=== PATIENT | female | born 2000 | race Caucasian/White ===

== ENCOUNTER 2025-05-23 18:56 | Emergency (ER) | payer OTHER, SELFPAY ==
--- NOTE | ~2025-05-23 | XR_ITS ---
XR hand LT min 3V 05/23/2025 20:11 INDICATION: Left hand pain after dog bite PROCEDURE: 3 views left hand COMPARISON: No prior studies for comparison. FINDINGS: Fracture, dislocation or subluxation is not identified. The soft tissues appear within normal limits. No foreign bodies are identified. IMPRESSION: 1: NO ACUTE BONE OR JOINT ABNORMALITY IDENTIFIED. Reviewed, dictated and finalized at location [facility]
--- OUTSIDE RECORDS SUMMARY | 2025-05-23 18:58 | XMS_ITS | Data Portability ---
Author Organization [facility] [place] Address [address] [place] [address] Care Team Providers Care Vocational Coordinator Name Role Phone INOCENCIO DAMON Primary Care Provider Assessment Encounter Date Assessment Date Assessment LastModified by Organization Details LastModified Time 03/02/2022 03/02/2022 Annual gynecological exam performed. Patient will come back in a year unless there are new symptoms. Not available 03/02/2022 12:47:50 09/10/2023 09/10/2023 Annual gynecological exam performed. Patient will come back in a year unless there are new symptoms. [email or web address] Not available 09/10/2023 14:21:18 09/10/2024 09/10/2024 Annual gynecological exam performed. Patient will come back in a year unless there are new symptoms. [email or web address] Not available 09/10/2024 10:58:17 Plan of Treatment Reminders Order Date Submit Date Provider Last Modified By Organization Details Last Modified Time Details Appointments None recorded. Lab None recorded. Referral None recorded. Procedures None recorded. Surgeries None recorded. Imaging None recorded. Medication Orders 06/15 (28) 1 mg-20 mcg (21)/75 mg (7) tablet 2024 025 E[id number], [address], [place], [address], 11:30:19 Slynd 4 mg (28) tablet 2023 024 [email or web address] 6 [facility] #[id number], [address], [place], [address], 4 09:34:43 Slynd 4 mg (28) tablet 2023 024 [email or web address] 6 [facility] #[id number], [address], [place], [address], 4 09:34:43 Blisovi Fe 1/20 (28) 1 mg-20 mcg (21)/75 mg (7) tablet 2021 022 [place] [address] [facility][id number], [address], [place], [place], [id number], 4 14:25:15 Aurovela Fe 1-20 (28) 1 mg-20 mcg (21)/75 mg (7) tablet 2020 021 [id number], [address], [place], [place], [id number], 4 14:25:15 Patient TargetsNo targets recorded. Patient InstructionsNo instructions recorded. Reason for Referral None Reported. Results Created Date Observation Date Name Description Value Unit Range Abnormal Flag Note LastModifiedBy Organization Detail LastModifiedTime 09/10/19 24 09/10/2023 IMAGE GUIDE D PAP, REFLE X HPV IF ASCUS ONLY image guided Pap, reflex HPV ASCUS only SEE RESULT S BELOW CASE REPOR T: Cytol ogy Gynec ologi lashell Repor t Case: [id number] Autho lencho riggs Provi al: Ryan Gamboa Colle cted: 09/09 1507 STEREOPTICIAN Order ing Locat ion: [place] [facility] Recei van: 09/10 0902 First Scree n: Diamond Rodriguez ay, CT Speci men: Scree heriberto Pap - Image d, Cervi x STATE MENT OF ADEQU ACY: Satis facto ry for evalu ation Trans forma tion zone compo nent prese nt FINAL DIAGN OSIS: Negat leila for Intra epith elial Lesio n or Echo gonzalez (NIL) . Shift in debbie sugge stive of bacte rial vagin osis. Elect nasir fregoso meliton d by Diamond Rodriguez, CT on 2023 at 10:56 AM ----- ----- ----- ----- ----- ----- ----- ----- ----- ----- ----- ----- ----- ----- ----- ----- ----- ---- COMME NT: This speci men was revie wed by a Cytot echno logis t and/o r Patho logis t (as indic ated in this repor t) after evalu ation using the Thinp rep Imagi ng Syste m. CLINI LASHELL INFOR MATIO N: Menst rual Statu s: LMP (if appli cable ): Clini lashell Histo ry/Pr eviou s Pap: Type of Neopl arnulfo (if appli cable ): Signi fican t Clini lashell Findi ngs: Other Histo ry: Hormo radha (if appli cable ): PAP EDUCA SANTOS L NOTE: The Pap Test is a scree heriberto test with an inher ent false negat leila rate. Liqui d-bas ed sampl ing may decre ase, but will not elimi rommel, false negat leila resul ts. A negat leila resul t does not precl ude the prese nce and/o r devel opmen t of disea se, since the prese nce of abnor mal cells in the sampl e depen ds on the locat ion of the lesio n and sampl ing techn ique. Justine nued regul ar scree heriberto is the best metho d of cance r preve ntion . If repor angy cytol ogic findi ng do not corre late with physi lashell and/o r histo rical findi ngs, furth er inves tigat ion is recom yoselyn d, as clini orly contreras nted. Not Available [facility] (Lab) [address], [place], [address], 09/16/2023 12:01:38 09/10/19 24 09/10/2023 TRICH OMONA S VAGIN ANA (RRNA ) trichomonas vaginalis ribosomal RNA (rrna) Negati ve negati ve Not Available [facility] (Lab) [address], [place], [address], 09/16/2023 12:01:39 09/10/19 24 09/10/2023 CT/GC (ARIK) , THINP REP VIAL chlamydia trachomatis, PCR Negati ve negati ve Not Available [facility] (Lab) [address], [place], [address], 09/16/2023 12:01:40 09/10/19 24 09/10/2023 CT/GC (ARIK) , THINP REP VIAL neisseria gonorrhoeae, PCR Negati ve negati ve Not Available [facility] (Lab) [address], [place], [address], 09/16/2023 12:01:40 Result Notes None recorded. Problems Name Problem SNOMED Code Status Onset Date Resolution Date Notes Provider Name and Address Organization Details Recorded Time Procedure by method Completed 201802/15/2021 Encounter for other general counselin g and advice on contracep tion;Donnell rded Elsewhere : No Locati on: [facility] So urce: EHR Chron ic: N Practic e ID: [id number] Bill able Time: 01:30:00 PM Stephany cote [facility] 11:25:[address] Concept Completed 201802/15/2021 Encntr for routine child health exam w/o abnormal findings; Recorded Elsewhere : No Locati on: [facility] So urce: EHR Chron ic: N Practic e ID: [id number] Bill able Time: 01:30:00 PM Stephany cote [facility] 09/22/202 1 11:25:08 Problem Notes None recorded. Procedures Surgical History Date Name Laterality Status Provider Name and Address Organization Details Recorded Time 4 Date of Last Pap Smear completed [facility] 09/10/2023 14:21:33 3 extraction of wisdom tooth completed [facility] 09/10/2023 14:26:01 Imaging Results None recorded. Procedure Notes None recorded. Medical Equipment None Reported. Allergies No known drug allergies Medications Name Sig Start Date Stop Date Status Note LastModified by Organization Details LastModified Time cyclobenz aprine 10 mg tablet TAKE 1 TABLET BY MOUTH EVERY 8 HOURS 03/02 completed Not Available Not Available Not Available ibuprofen 800 mg tablet TAKE 1 TABLET BY MOUTH EVERY 8 HOURS NEEDED FOR PAIN 09/09 completed Not Available Not Available Not Available hydrocodo ne 5 mg-acetam inophen 325 mg tablet TAKE 1 TO 2 TABLETS BY MOUTH EVERY 6 HOURS NEEDED FOR PAIN 09/09 completed Not Available Not Available Not Available metronida zole 0.75 % (37.5 mg/5 gram) vaginal gel INSERT 1 APPLICAT ORFUL VAGINALL Y EVERY DAY AT BEDTIME FOR 5 DAYS 11/25 completed Not Available Not Available Not Available ondansetr on HCl 4 mg tablet 12/20 completed Not Available Not Available Not Available pimecroli mus 1 % topical cream APPLY THIN LAYER TO AFFECTED AREA UNTIL RESOLVED , THEN 2 TO 3 TIMES PER WEEK FOR MAINTENA NCE active Not Available Not Available No t Available propranol ol 10 mg tablet TAKE 2 TABLETS BY MOUTH TWICE A DAY NEEDED FOR 30 DAYS 09/10 completed Not Available Not Available Not Available amoxicill in 875 mg tablet TAKE 1 TABLET BY MOUTH TWICE A DAY UNTIL FINISHED 09/09 completed Not Available Not Available Not Available oseltamiv ir 75 mg capsule 12/20 completed Not Available Not Available Not Available ibuprofen 600 mg tablet TAKE 1 TABLET BY MOUTH EVERY 8 HOURS WITH FOOD NEEDED 03/02 completed Not Available Not Available Not Available FE 06/15 (28) 1 mg-20 mcg (21)/75 mg (7) tablet TAKE 1 TABLET BY MOUTH EVERY DAY active Not Available Not Available No t Available sodium fluoride 1.1 % dental paste USE AT BEDTIME. BRUSH THOROUGH LY & SPIT OUT AFTER USE BUT DONT RINSE 09/10 completed Not Available Not Available Not Available Lo Loestrin Fe 1 mg-10 mcg (24)/10 mcg (2) tablet take 1 tablet by oral route every day 05/25 completed Prescrib ed Elsewher e: No Locat ion: Ramonita nunez [facility] M odify By: emily cantor DateTime : 05/22/20 01:30:00 PM Not Available Not Available Not Available Slynd 4 mg (28) tablet TAKE 1 TABLET BY MOUTH EVERY DAY WITH MEALS 01/06 completed Not Available Not Available Not Available Vitals Date Recorded Systolic And Diastolic Provider Name and Address Organization Details Last Updated DateTime 09/10/2023 118/72 mm[Hg] Radha Galarza, [facility]- [address], [place], [address], [facility] 09/10/2023 14:44:45 Date Recorded Body weight Provider Name an d Address Organization Details Last Updated DateTime 09/10/2023 28228.44 g Pamela Stahl [facility] 09/10/2023 14:24:49 Date Recorded Body height Body mass index (BMI) Body weight Systolic And Diastolic Provider Name and Address Organization Details Last Updated DateTime 09/10/2024 158.75 cm 25.8 kg/m2 86192.43 g 129/85 mm[Hg] Kanchan Woody [facility] 09/10/2024 11:03:04 Date Recorded Body height Body mass index (BMI) Body weight Systolic And Diastolic Provider Name and Address Organization Details Last Updated DateTime 11/26/2023 158.75 cm 24.7 kg/m2 85743.15 g 122/77 mm[Hg] Rose Marie Troncoso [facility] 11/26/2023 10:20:19 Date Recorded Body height Body mass index (BMI) [Percentile] Per age and sex Body mass index (BMI) Body weight Systolic And Diastolic Provider Name and Address Organization Details Last Updated DateTime 02/20/2021 157.48 cm 70 % 23.6 kg/m2 57914.4 2 g 116/74 mm[Hg] Stephany Zeke [facility] 09:28:08 Date Recorded Body height Body mass index (BMI) [Percentile] Per age and sex Body mass index (BMI) Body weight Systolic And Diastolic Provider Name and Address Organization Details Last Updated DateTime 03/02/2022 158.75 cm 74 % 24.3 kg/m2 62447.9 7 g 120/72 mm[Hg] Pamela Alcantar [facility] 12:48:24 Social History Question Answer Notes LastModified by Organizat ion Details LastModified Time Tobacco Smoking Status Never Smoker Jose Locke kera [facility] 03/02/2022 12:25:54 Do You Have An Advance Directive? No [email or web address] Information n ot available 02/20/2021 Are You Blind Or Do You Have Difficulty Seeing? No [email or web address] Information n ot available 02/20/2021 What Is Your Level Of Caffeine Consumption? Occasional [email or web address] Information not available 02/20/2021 How Much Tobacco Do You Chew? None [email or web address] Information not available 02/20/2021 In The 14 Days Before Symptom Onset, Have You Had Close Contact With A Laboratory-confirm ed COVID-19 While That Case Was Ill? No [email or web address] Information n ot available 02/20/2021 In The 14 Days Before Symptom Onset, Have You Had Close Contact With A Person Who Is Under Investigation For COVID-19 While That Person Was Ill? No [email or web address] Information not available 02/20/2021 Have You Been To An Area Known To Be High Risk For COVID-19? No Information not available 02/20/2021 Are You Deaf Or Do You Have Serious Difficulty Hearing? No [email or web address] Information not available 02/20/2021 What Type Of Diet Are You Following? REGULAR Information n ot available 02/20/2021 What Is The Highest Grade Or Level Of School You Have Completed Or The Highest Degree You Have Received? [id number] [email or web address] Information not available 02/20/2021 Are There Any Guns Present In Your Home? Yes Information not available 02/20/2021 Do You Use Protection During Sex? Always [email or web address] Information not available 02/20/2021 Do You Use Your Seat Belt Or Car Seat Routinely? Yes [email or web address] Information not available 02/20/2021 Do You Have Smoke And Carbon Monoxide Detectors In Your Home? Yes [email or web address] Information not available 02/20/2021 How Much Tobacco Do You Smoke? No Information not available 02/20/2021 Do You Use Sunscreen Routinely? Yes [email or web address] Information not available 02/20/2021 Have You Used IV Drugs? No [email or web address] Information not available 02/20/2021 Do You Have Difficulty Walking Or Climbing Stairs? No Information not available 03/02/2022 Sex: Unknown Functional Status Question Answer Note LastModified by Organizat ion Details LastModified Time Do you use any illicit or recreational drugs? No [email or web address] Information not available 02/20/2021 What is your level of alcohol consumption? None [email or web address] Information not available 02/20/2021 Are you able to walk independently without assistance or assistive devices? [email or web address] Information not available 02/20/2021 Are you able to care for yourself independently? Yes Information not available 03/02/2022 What is your occupation? Student Information not available 02/20/2021 Do you have difficulty dressing, bathing, grooming, or toileting? No Information not available 03/02/2022 What is your exercise level? Heavy [email or web address] Information not available 02/20/2021 Mental Status Question Answer Note LastModified by Organization D etails LastModified Time Do you feel stressed (tense, restless, nervous, or anxious, or unable to sleep at night)? [id number] [email or web address] Information not available 02/20/2021 Family History Relationship Description Onset Age of this Age Resolved Age Notes LastModified by Organization Details LastModified Time Mother Hypertensive disorder [email or web address] Not available 2019 09:46:12 Mother Hypercholest erolemia [email or web address] Not available 2019 09:46:32 Maternal Grandfather Hypertensive disorder [email or web address] Not available 2019 09:46:12 Maternal Grandfather Heart disease [email or web address] Not available 2019 09:46:37 Maternal Grandfather Diabetes mellitus [email or web address] Not available 2019 09:46:46 Maternal Grandfather Multiple myeloma Not available 2021 12:49:51 Father Hypercholest erolemia [email or web address] Not available 2019 09:46:32 Maternal Grandmother Hypercholest erolemia [email or web address] Not available 2019 09:46:32 Paternal Grandfather Carcinoma of prostate 61 [email or web address] Not available 2021 12:25:53 Paternal Grandmother Malignant neoplasm of skin 70 [email or web address] Not available 2021 12:25:53 Medical History Condition Response Allergies (Food, seasonal, environmental ) N Other N Drug/Latex Allergies/Reactions N Breast Cancer N Blood Transfusion N Lung Disease N Dermatologic Disorders N Defects or Inherited Disease N Breast Problem N Gestational Diabetes N Hematologic disorders N Anesthesia Complications N History of STI N Deep Vein Thrombosis N Polycystic ovary syndrome N Anxiety Disorder N Autoimmune disease N Arthritis N Polyps N Infertility N History of abnormal pap N Acid Reflux (GERD) N Cancer N Varicosities N Stroke N Neurologic/Epilepsy N Endometriosis N High Cholesterol N Headaches N Fibromyalgia N Kidney Disease N Heart Problems N Thyroid Problems N Kidney or Bladder Problems N GI Problems N Eating Disorder N Anemia N Art (IVF or FET) N Psychiatric Illness N Ovarian Cancer N Diabetes N Pulmonary (TB, Asthma) N Hepatitis/Liver Disease N No Past Medical History N Eczema N Urinary Tract Infection N Abuse/Domestic Violence N Asthma N Trauma/Violence N Depression/ depression N Heart Disease N Pre-Eclampsia N Hypertension N Osteoporosis N Thrombophilias N Gynecological History Statement/Question Response Flow Moderate Date of LMP 08/15/2024 N Was last menstrual period normal Y STIs/STDs N HPV Vaccine N Duration of Flow (days) 5 12 Current Control Method None Are cycles usually normal Y Frequency of Cycle (Q days) 26 Sexually Active? Y BCPs Menses Monthly Y Age of first menstrual cycle 13 Date of Last Pap Smear 09/10/2023 Sexual Problems? N LMP Definite N Obstetrics History GPAL:G 0 P 0 0 0 0 Past Encounters Encounter ID Performer Location Encounter Start Date Encounter Closed Date Diagnosis/Indication Diagnosis SNOMED-CT Code Diagnosis ICD10 Code Diagnosis IMO Codes Diagnosis Note [id number] [facility] [address] [address] 12/21/2019 09:47:39 12/21/2019 10:46:26 Gynecologic examination 81021906 Z01.419 Take Calcium with Vitamin D 1200mg daily if not receiving in daily diet. It is strongly advised to have an annual flu shot and up can obtain at most pharmacies . If you have not had a TDap shot in the last 10 years you should obtain one as well. Discussed with patient & provided with informatio n regarding Gardisil vaccine to prevent the 4 strains for HPV that cause cervical cancer. Encourage safe sexual practices, to use condoms and limit partners if not already in a monogamous relationsh ip. Do monthly self breast exams. BRCA testing is now available for patients with strong genetic history of female cancer. If interested contact the office. Engage in daily exercise of low impact aerobic exercise 45-60 minutes 4-5 times weekly. Avoid tobacco, illicit drugs, and alcohol. This lifestyle behavior pattern will lead to less health conditions and longer life span. If BMI greater than 25 weight watchers or dietary consult advised. Pap smear is not recommende d prior to the age of 21. If you have any concerns, pelvic, or vaginal problems we can discuss testing. Patient received above instructio ns, and questions have been answered. If you have any questions please call or respond to this email. Patient was made aware of the patient portal and may obtain a paper copy of today's plan if desired. [facility] ion care management [id number] Z30.9 RF sent 06/15. REcently received a generic of this brand & feels she can tell a difference as it has caused a little BTB/spotti ng and earlier period start since starting itdespite good compliance . Rx 06/15 LIZZIE sent [id number] Julee Cruz CNM [facility] [address] [address] 02/20/2021 09:20:05 02/20/2021 10:11:57 Gynecologic examination 78971035 Z01.419 Z11.3 Z11.8 Take Calcium with Vitamin D 1200mg daily if not receiving in daily diet. It is strongly advised to have an annual flu shot and up can obtain at most pharmacies . If you have not had a TDap shot in the last 10 years you should obtain one as well. Discussed with patient & provided with informatio n regarding Gardisil vaccine to prevent the 4 strains for HPV that cause cervical cancer. Encourage safe sexual practices, to use condoms and limit partners if not already in a monogamous relationsh ip. Do monthly self breast exams. BRCA testing is now available for patients with strong genetic history of female cancer. If interested contact the office. Engage in daily exercise of low impact aerobic exercise 45-60 minutes 4-5 times weekly. Avoid tobacco, illicit drugs, and alcohol. This lifestyle behavior pattern will lead to less health conditions and longer life span. If BMI greater than 25 weight watchers or dietary consult advised. Pap smear is not recommende d prior to the age of 21. If you have any concerns, pelvic, or vaginal problems we can discuss testing. Happy with ocp and would like to continue. Consent read and signed. Patient received above instructio ns, and questions have been answered. If you have any questions please call or respond to this email. Patient was made aware of the patient portal and may obtain a paper copy of today's plan if desired. [id number] Radha Galarza , [facility] [address],[place] [address] 03/02/2022 12:25:37 03/02/2022 13:15:24 Gynecologic examination [id number] Z01.419 Take Calcium with Vitamin D 1200mg daily if not receiving in daily diet. It is strongly advised to have an annual flu shot and up can obtain at most pharmacies . If you have not had a TDap shot in the last 10 years you should obtain one as well. Discussed with patient & provided with informatio n regarding Gardisil vaccine to prevent the 4 strains for HPV that cause cervical cancer. Encourage safe sexual practices, to use condoms and limit partners if not already in a monogamous relationsh ip. Do monthly self breast exams. BRCA testing is now available for patients with strong genetic history of female cancer. If interested contact the office. Engage in daily exercise of low impact aerobic exercise 45-60 minutes 4-5 times weekly. Avoid tobacco, illicit drugs, and alcohol. This lifestyle behavior pattern will lead to less health conditions and longer life span. If BMI greater than 25 weight watchers or dietary consult advised. Pap smear is not recommende d prior to the age of 21. If you have any concerns, pelvic, or vaginal problems we can discuss testing. Patient received above instructio ns, and questions have been answered. If you have any questions please call or respond to this email. Patient was made aware of the patient portal and may obtain a paper copy of today's plan if desired.Imtiaz cat age 22yo STD Screen declined Genetic Screen discussed Colon Screen na Dexa Screen na Routine Labs na Contracept ion care management [id number] Z30.9 Happy on OCPRF sent x 1yr [id number] Radha Galarza , [facility] [address] [address] 09/10/2023 14:16:08 09/10/2023 14:51:00 Gynecologic examination 58698142 Z01.419 Take Calcium with Vitamin D 1200mg daily if not receiving in daily diet. It is strongly advised to have an annual flu shot and up can obtain at most pharmacies . If you have not had a TDap shot in the last 10 years you should obtain one as well. Discussed with patient & provided with informatio n regarding Gardisil vaccine to prevent the 4 strains for HPV that cause cervical cancer. Encourage safe sexual practices, to use condoms and limit partners if not already in a monogamous relationsh ip. Do monthly self breast exams. BRCA testing is now available for patients with strong genetic history of female cancer. If interested contact the office. Engage in daily exercise of low impact aerobic exercise 45-60 minutes 4-5 times weekly. Avoid tobacco, illicit drugs, and alcohol. This lifestyle behavior pattern will lead to less health conditions and longer life span. If BMI greater than 25 weight watchers or dietary consult advised. Pap smear is not recommende d prior to the age of 21. If you have any concerns, pelvic, or vaginal problems we can discuss testing. Patient received above instructio ns, and questions have been answered. If you have any questions please call or respond to this email. Patient was made aware of the patient portal and may obtain a paper copy of today's plan if desired.Imtiaz cat sentSTD Screen sentGeneti c Screen discussedC olon Screen naDexa Screen [facility] na Contracept ion care management [id number] Z30.9 Discussed all control options in great detail. Pt would like to start POP. She is aware of the risks and benefits. She has contraindi cations to use of OCP or other estrogen containing hormonal therapy. Pt will start her pills on the first saturday following the start of her period. She is aware it is not effective for control the first month. She is also aware of the importance of taking at the same time every day. Encouraged use of condoms as the pill does not protect against STD's. Will return in 3 months for med check. Consent was read and signed. Pt verbalized understand ing. [id number] RADHA SORTO MD [facility] [address],[place] [address] 11/26/2023 10:11:04 11/26/2023 11:00:51 Contraception care management [id number] Z30.9 - 1.5 packs into Slynd, overall happy besides some increased mood swings- would like to continue Slynd at this time- no contraindi cations- will send 1 year of refills; rtc 1 year for wwe [id number] Jaquan Davalos MD [facility] [address],[place] [address] 09/10/2024 10:48:56 09/10/2024 11:42:45 Gynecologic examination 19690533 Z01.419 [id number] Annual gynecologi lashell exam performed. Patient will come back in a year unless there are new symptoms. Suggest Calcium with Vitamin D if not eating in diet. Patient advised to get annual flu shot. Recommend yearly physicals and perform monthly breast exams. Genetic testing is available for patients with family history of cancer. Engage in safe sexual practices, use condoms. Encouraged to have daily exercise. Avoid tobacco and illicit drugs, moderation of alcohol. If BMI greater than 25 dietary consult advised. If you have any questions please call or email. Pap smear- UTD (2023 - WNL), will repeat in 2026 per ASCCP guidelines laboratory evaluation - PCP STI testing - declined Uses oral contraception [id number] [id number] Happy with BC pills. Risks/bene fits reviewed.R efills sent x one year. Health Concerns Section Related Observation LastModified by Organization Detai ls LastModified Time None Recorded Concern Status LastModified by Organization Details LastModified Time None Recorded Advance Directives Directive N: Payers Insurance Date Sequence Insurance Name Policy Number Policy Loaiza Covered Member ID Loaiza Member ID Guarantor Name 09/10/2024 1 [facility] [id number] Antonia Jackie [id number] Dennys Jackie 09/09/2023 1 [employer] [id number] Dennys Rios Wilmer Braden [id number] Dennys Mejia 09/10/2024 2 [employer] (O) Dennys Jackie [id number] Dennys Jackie Notes Date Note Type Note Provider Name and Address Organization Details Recorded Time 1 text/html Annual GYNReported by PatientGenitourinary symptomsFor menstrual cycle, patient reportsnormal menses. For urinary symptoms, patient reportsno hematuriaandno incontinence. For vulva, patient reportsno genital lesion. For vagina, patient reportsnormal vaginal discharge.Breast symptomsFor breast, patient reportsno breast pain,no breast lump, andno nipple discharge.Endocrine symptomsFor sexual complaints, patient reportsno sexual complaints,no pain during intercourse, andnormal libido. For menopausal symptoms, patient reportsno menopausal symptomsandnormal vaginal lubrication.Psychological symptomsFor psychological symptoms, patient reportsno depression,no anxiety, andno pmdd. [facility] [place] 02/20/2021 10:03:01 2 text/html Annual GYNReported by PatientHistoryFor history, patient reportsno gynecologic complaints.Genitourinary symptomsFor menstrual cycle, patient reportsnormal menses. For urinary symptoms, patient reportsno hematuriaandno incontinence. For vulva, patient reportsno genital lesion. For vagina, patient reportsnormal vaginal discharge.Breast symptomsFor breast, patient reportsno breast pain,no breast lump, andno nipple discharge.ContraceptionFo r current contraception, patient reportssatisfied with current contraceptionandoral contraceptives.Endocrine symptomsFor sexual complaints, patient reportsno sexual complaints,no pain during intercourse, andnormal libido. For menopausal symptoms, patient reportsno menopausal symptomsandnormal vaginal lubrication.Psychological symptomsFor psychological symptoms, patient reportsno depression,no anxiety, andno pmdd.Preventative measuresFor preventive measures, patient reportsencourage self breast examination,encourage regular exercise,encourage no tobacco use, andencourage regular mammograms starting age 40. Radha Galarza, [facility] [address], [place], [address], [facility] 03/02/2022 13:15:09 4 text/html Annual GYNReported by PatientHistoryFor history, patient reportsno gynecologic complaints.Genitourinary symptomsFor menstrual cycle, patient reportsnormal menses. For urinary symptoms, patient reportsno hematuriaandno incontinence. For vulva, patient reportsno genital lesion. For vagina, patient reportsnormal vaginal discharge.Breast symptomsFor breast, patient reportsno breast pain,no breast lump, andno nipple discharge.ContraceptionFo r current contraception, patient reportssatisfied with current contraceptionandoral contraceptives.Endocrine symptomsFor sexual complaints, patient reportsno sexual complaints,no pain during intercourse, andnormal libido. For menopausal symptoms, patient reportsno menopausal symptomsandnormal vaginal lubrication.Psychological symptomsFor psychological symptoms, patient reportsno depression,no anxiety, andno pmdd.Preventative measuresFor preventive measures, patient reportsencourage self breast examination,encourage regular exercise,encourage no tobacco use,encourage regular mammograms starting age 40, andfollowed with yearly pap smears. Radha Galarza, [facility] [address], [place], [address], [facility] 09/10/2023 14:45:46 4 text/html Presents for med check. Still having some cramping as well as mood swings which have worsened since starting Slynd. No irregular bleeding. No nausea or vomiting. RADHA SORTO MD [address], [place], [address], [facility] 11/26/2023 10:58:33 5 text/html Annual GYNReported by PatientHistoryFor history, patient reportsno gynecologic complaints.Genitourinary symptomsFor menstrual cycle, patient reportsnormal menses. For urinary symptoms, patient reportsno hematuriaandno incontinence. For vulva, patient reportsno genital lesion. For vagina, patient reportsnormal vaginal discharge.Breast symptomsFor breast, patient reportsno breast pain,no breast lump, andno nipple discharge.ContraceptionFo r current contraception, patient reportssatisfied with current contraceptionandoral contraceptives.Endocrine symptomsFor sexual complaints, patient reportsno sexual complaints,no pain during intercourse, andnormal libido. For menopausal symptoms, patient reportsno menopausal symptomsandnormal vaginal lubrication.Psychological symptomsFor psychological symptoms, patient reportsno depression,no anxiety, andno pmdd.Preventative measuresFor preventive measures, patient reportsencourage self breast examination,encourage regular exercise,encourage no tobacco use, andencourage regular mammograms starting age 40. Patient presents for annual well woman exam. Patient denies concerns today. CARMELITA QUIGLEY NP [address], [place], [address], [facility] [place] 09/10/2024 11:31:09 OBGyn Episode No OBEpisode recorded.
--- OUTSIDE RECORDS SUMMARY | 2025-05-23 18:58 | XMS_ITS | Clinical Summary ---
Author Organization [address] Address [address] [place] [id number] Care Team Providers Care Floor Plan Adjuster Name Role Phone Batool Faustin MD Primary Care Provider [phone] Allergies No known active allergies Medications norethindrone-e .estradioL-iron (JUNEL FE 06/15) 1 mg-20 mcg (21)/75 mg (7) per tablet Take 1 tablet by mouth daily 9 Active fluoride, sodium, 1.1 % paste USE AT BEDTIME. BRUSH THOROUGHLY & SPIT OUT AFTER USE BUT DONT RINSE 4 Active propranoloL (INDERAL) 10 mg tablet TAKE 2 TABLETS BY MOUTH TWICE A DAY NEEDED FOR 30 DAYS Active Active Problems No known active problems Social History Tobacco Use Types Packs/Day Years Used Date Smoking Tobacco: Never Assessed Comments Unknown Sex and Gender Information Value Date Recorded Sex Assigned at Not on file Legal Sex Female 12:01 PM CDT Gender Identity Not on file Sexual Orientation Not on file Last Filed Vital Signs Vital Sign Reading Time Taken Comments Blood Pressure 98/62 12/03/2023 6:05 PM CDT Pulse 78 12/03/2023 6:05 PM CDT Temperature 37.2 C (99 F) 12/03/2023 6:05 PM CDT Respiratory Rate 18 12/03/2023 6:05 PM CDT Oxygen Saturation 98% 12/03/2023 6:05 PM CDT Inhaled Oxygen Concentration - - Weight 59 kg (130 lb) 12/03/2023 6:05 PM CDT Height 157.5 cm (5' 2) 12/03/2023 6:05 PM CDT Body Mass Index 23.78 12/03/2023 6:05 PM CDT Plan of Treatment Health Maintenance Due Date Last Done Comments Cervical Cancer Screening 2001 Depression Screening 2001 Hepatitis C Screening 2001 Regular Well Visit/Exam 18-64 11/07/2019 DTaP/Tdap/Td Vaccine (8 - Td or Tdap) 11/14/2022 11/14/2012, 11/14/2012, 11/11/2006, Additional history exists Covid-19 Vaccine (2024-2 6 season) 2025 03/01/2021, 02/08/2021 Influenza Vaccine (#1) 2025 , 03/09/2019, 04/01/2018, Additional history exists Hepatitis B Screening Completed 08/10/2002 , 03/10/2002, 01/06/2002 Pneumococcal vaccine <65 Completed 003, 08/10/2002, 03/10/2002, Additional history exists Varicella Vaccines Completed 11/11/2006, 11/09/2002 HPV Vaccines Completed 11/19/2014, 10/26, 11/14/2012 Meningococcal B Vaccine Completed 03/09/2019, 12/10 Insurance Care Teams Floor Plan Adjuster Relationship Specialty Start Date End Date Batool Faustin MD [address] [address] PCP - General Pediatrics 08/05/23
--- OUTSIDE RECORDS SUMMARY | 2025-05-23 18:58 | XMS_ITS | Clinical Summary ---
Author Organization [facility] Address [address] [place] [address] Care Team Providers Care Central Supply Technician Supervisor Name Role Phone No, Pcp NEGOTIATOR Primary Care Provider Unavailabl e Social History Tobacco Use Types Packs/Day Years Used Date Smoking Tobacco: Never Assessed Comments Unknown Sex and Gender Information Value Date Recorded Sex Assigned at Not on file Legal Sex Female 6:39 AM EST Gender Identity Not on file Sexual Orientation Not on file Plan of Treatment Not on file Medical Devices Not on file Care Teams Central Supply Technician Supervisor Relationship Specialty Start Date End Date No, Pcp, NEGOTIATOR N/A Do not use PCP - General Family Medicine 04/13/20
--- OUTSIDE RECORDS SUMMARY | 2025-05-23 18:58 | XMS_ITS | Clinical Summary ---
Author Organization [facility] Address [address] [place] [address] Care Team Providers Care Parcel Wrapper Name Role Phone Unavailable Primary Care Provider Unavailabl e Immunizations Immunization Administration Dates Next Due Covid-19, Mrna, Lnp-s, Pf, 30 Mcg/0.3 Ml Dose (P fizer) 03/01/2021,02/08/2021 Social History Tobacco Use Types Packs/Day Years Used Date Smoking Tobacco: Never Assessed Comments Unknown Sex and Gender Information Value Date Recorded Sex Assigned at Not on file Legal Sex Female 1:00 PM CDT Gender Identity Not on file Sexual Orientation Not on file Plan of Treatment Health Maintenance Due Date Last Done Comments Hepatitis C Virus (HCV) Screening 2001 Influenza Immunization (#1) 01/25/202502/24, 04/01/2018, 03/29/2015, Additional history exists SARS-COV-2 Immunization ( season) 2025 03/01/2021, 02/08/2021 Respiratory Syncytial Virus (RSV) Immunization (Adult) (1 - 1-dose 75+ series) 2076 Hepatitis B Immunization Completed 003, 03/10/2002, 01/06/2002 Pneumococcal Immunization Combined Completed 11/09/2002, 08/10/2002, 03/10/2002, Additional history exists Hepatitis A Immunization Discontinued 11/11/2006, 10/2005 Measles Mumps Rubella (MMR) Immunization Discontinued 11/11/2006, 02/24/2003 Polio (IPV) Immunization Discontinued 007, 05/10/2003, 03/10/2002, Additional history exists Varicella Immunization Completed 11/11/2006, 2002 DTaP/Tdap/Td Immunization Discontinued 2012, 11/11/2006, 02/24/2003, Additional history exists TdaP Immunization Completed 11/14/2012 Human Papillomavirus (HPV) Immunization Completed 11/19/2014, 11/17/2013, 11/14/2012 Meningococcal Immunization (ACWY) Completed 12/10/2017, 11/14/2012 Meningococcal B Immunization Completed 03/09/2019, 12/10/2017 Rotavirus Immunization Aged Out No lo nger eligible based on patient's age to complete this topic Insurance [employer] on file [employer] on file
--- OUTSIDE RECORDS SUMMARY | 2025-05-23 18:58 | XMS_ITS | Clinical Summary ---
Author Organization [facility] Address [address] [place] [address] Care Team Providers Care Cutter Operator Tile Name Role Phone Batool Faustin MD Primary Care Provider Source Comments [facility],non-[facility] community hospital Affiliates and Associated Physician Practices is amultiple site organization consisting of ambulatory clinics and hospital sitesin [place], [place], [place] and [place]. This disclosure is being madepursuant to the Care Everywhere program and may not contain all information available regarding this patient. Last updated 18.[facility] Allergies No known active allergies Medications * Be aware that medications may not be up to date on this document. Alwaysverify current medications with the patient. norethin-eth estradiol-FE (LOESTRIN FE 06/15) 1-20 MG-MCG tablet Take 1 tablet by mouth every 24 hours 05/25/2019 Active Social History Tobacco Use Types Packs/Day Years Used Date Smoking Tobacco: Never Smokeless Tobacco: Never Comments:Non-smoking house Comments No Sex and Gender Information Value Date Recorded Sex Assigned at Not on file Legal Sex Female 9:49 AM CDT Gender Identity Not on file Sexual Orientation Not on file Last Filed Vital Signs Vital Sign Reading Time Taken Comments Blood Pressure 108/70 08/14/2018 6:17 PM CDT Pulse 98 07/06/2019 5:03 PM CONFIGURATION SPECIALIST Temperature 36.7 C (98 F) 07/06/2019 5:03 PM CONFIGURATION SPECIALIST Respiratory Rate 16 07/06/2019 5:03 PM CONFIGURATION SPECIALIST Oxygen Saturation 99% 07/06/2019 5:03 PM CONFIGURATION SPECIALIST Inhaled Oxygen Concentration - - Weight 52.2 kg (115 lb) 07/06/2019 5:03 PM CONFIGURATION SPECIALIST Height 157.5 cm (5' 2) 07/06/2019 5:03 PM CONFIGURATION SPECIALIST Body Mass Index 21.03 07/06/2019 5:03 PM CONFIGURATION SPECIALIST Plan of Treatment Health Maintenance Due Date Last Done Comments HIV SCREENING 2016 HPV VACCINE (1 - 3-dose series) 2016 CHLAMYDIA/GONORRHEA SCREENING 2017 MENINGOCOCCAL (Group B) VACC INE SHARED DECISION-MAKING (1 of 2 - Standard) 2017 HEPATITIS C SCREENING 11/02/2019 DTAP/TDAP/TD VACCINES (1 - Tdap) 2020 HEPATITIS B VACCINE (1 of 3 - 19+ 3-dose series) 2020 DEPRESSION SCREENING 05/27/2024 COVID-19 VACCINE (1 - 2024-2 6 season) 2025 INFLUENZA VACCINE (#1) 2025 ZOSTER VACCINE (1 of 2) 11/07/2051 HIB VACCINE Aged Out No longer eligi ble based on patient's age to complete this topic MENINGOCOCCAL GROUPS A/C/Y/W VACCINE Aged Out No longer eligible b ased on patient's age to complete this topic PNEUMOCOCCAL VACCINE Aged Out No long er eligible based on patient's age to complete this topic Insurance [facility] Care Teams Cutter Operator Tile Relationship Specialty Start Date End Date Batool Faustin MD [address] [place] [id number] PCP - General Pediatrics 03/16/16
[2025-05-23 19:03] VITALS: BP 126/89; PULSE 93; RESP 16; TEMP 36.6; O2SAT 100
--- NOTE | 2025-05-23 19:16 | PC.NURSE ---
Assumed care of patient at this time.
--- OUTSIDE RECORDS SUMMARY | 2025-05-23 19:49 | XMS_ITS | Clinical Summary ---
Author Organization [facility] Address [address] [place] [address] Care Team Providers Care Churner Name Role Phone Batool Faustin MD Primary Care Provider Source Comments [facility] and Associated Physician Practices is amultiple site organization consisting of ambulatory clinics and hospital sitesin [place], [place], [place] and [place]. This disclosure is being madepursuant to the Care Everywhere program and may not contain all information available regarding this patient. Last updated 18.[facility] Allergies No known active allergies Medications * [...] PM CDT Pulse 98 07/06/2019 5:03 PM EXPLOSIVES WORKER Temperature 36.7 C (98 F) 07/06/2019 5:03 PM EXPLOSIVES WORKER Respiratory Rate 16 07/06/2019 5:03 PM EXPLOSIVES WORKER Oxygen Saturation 99% 07/06/2019 5:03 PM EXPLOSIVES WORKER Inhaled Oxygen Concentration - - Weight 52.2 kg (115 lb) 07/06/2019 5:03 PM EXPLOSIVES WORKER Height 157.5 cm (5' 2) 07/06/2019 5:03 PM EXPLOSIVES WORKER Body Mass Index 21.03 07/06/2019 5:03 PM EXPLOSIVES WORKER Plan of Treatment Health Maintenance Due Date [...] patient's age to complete this topic Insurance [facility] Care Teams Churner Relationship Specialty Start Date End Date Batool Faustin MD [address] [place] [id number] PCP - General Pediatrics 03/16/16
--- OUTSIDE RECORDS SUMMARY | 2025-05-23 19:49 | XMS_ITS | Clinical Summary ---
Author Organization [address] Address [address] [place] [id number] Care Team Providers Care Dermatopathologist Name Role Phone Batool Faustin MD Primary Care Provider [phone] Allergies No known active allergies Medications norethindrone-e [...] Vaccine Completed 03/09/2019, 12/10 Insurance Care Teams Dermatopathologist Relationship Specialty Start Date End Date Batool Faustin MD [address] [address] PCP - General Pediatrics 08/05/23
--- OUTSIDE RECORDS SUMMARY | 2025-05-23 19:49 | XMS_ITS | Clinical Summary ---
Author Organization [facility] Address [address] [place] [address] Care Team Providers Care Government Affairs Manager Name Role Phone No, Pcp TRAFFIC OPERATIONS ENGINEER Primary Care Provider Unavailabl e Social History Tobacco Use Types Packs/Day Years Used Date Smoking Tobacco: Never Assessed Comments Unknown Sex and Gender Information Value Date Recorded Sex Assigned at Not on file Legal Sex Female 6:39 AM EST Gender Identity Not on file Sexual Orientation Not on file Plan of Treatment Not on file Medical Devices Not on file Care Teams Government Affairs Manager Relationship Specialty Start Date End Date No, Pcp, TRAFFIC OPERATIONS ENGINEER N/A Do not use PCP - General Family Medicine 04/13/20
--- OUTSIDE RECORDS SUMMARY | 2025-05-23 19:49 | XMS_ITS | Clinical Summary ---
Author Organization [facility] Address [address] [place] [address] Care Team Providers Care Protection Specialist Name Role Phone Unavailable Primary Care Provider [...]
--- NOTE | 2025-05-23 20:02 | ED.ANIMALBIT ---
HPI - Animal Bite General Chief Complaint: Animal Bite Stated Complaint: bit dog, left hand Time Seen by Provider: 05/23/25 19:20 History of Present Illness HPI narrative: 24-year-old otherwise healthy female presenting with a dog bite to her left hand. Patient was breaking up a fight between her 2 dogs when 1 of them but her on the left hand. She has a puncture michelle the dorsum of the left hand near the 1st and 2nd digit. She also has a superficial abrasion to the anterior surface left thumb. no paresthesias restricted range of motion. No significant pain or swelling. She is not sure about her tetanus status. Her dogs are up-to-date on rabies and otherwise healthy. This was a accidental injury. no other comorbidities or any other symptoms at this time. Otherwise healthy. Related Data Allergies Allergy/AdvReac Type Severity Reaction Status Date / Time No Known Allergies Allergy Verified 05/23/25 19:05 Review of Systems Review of Systems: As reviewed above in HPI All systems reviewed & are unremarkable except as noted in HPI and below Exam Narrative: GENERAL: [Well-appearing, well-nourished, and in no acute distress.] HEAD: [Normocephalic, atraumatic.] EYES: [PERRLA and EOMI.] ENT: Nares clear, no rhinorrhea or epistaxis. Mucous membranes moist. NECK: Supple. CHEST: No respiratory distress, symmetric chest rise HEART: 2+ pulses, warm extremity. ABDOMEN: [Soft, nondistended], [nontender], [No rigidity or guarding] EXTREMITIES: 1.0 cm puncture to the left dorsum of the hand between 1st and 2nd digit, superficial abrasion to the palmar surface left anterior thumb. No significant bleeding swelling or pain. No restricted range of motion. Able to oppose each digit. No crepitus palpation or any obvious bony deformity. No obvious retained foreign body. SKIN: Warm, dry, no rash. NEURO: [No focal deficits]. Alert and oriented [x3.] PSYCH: [Normal mood and affect.] Course Vital Signs Vital signs: Vital Signs Temperature 36.6 C 05/23/25 19:03 Pulse Rate 93 05/23/25 19:03 Respiratory Rate 16 05/23/25 19:03 Blood Pressure 126/89 05/23/25 19:03 Pulse Oximetry 100 05/23/25 19:03 Oxygen Delivery Room Air 05/23/25 19:03 Temperature 36.6 C 05/23/25 19:03 Pulse Rate 93 05/23/25 19:03 Respiratory Rate 16 05/23/25 19:03 Blood Pressure 126/89 05/23/25 19:03 Pulse Oximetry 100 05/23/25 19:03 Oxygen Delivery Room Air 05/23/25 19:03 MDM MDM Narrative Medical decision making narrative: 24-year-old otherwise healthy female presenting with a dog bite to her left hand. Patient was breaking up a fight between her 2 dogs when 1 of them but her on the left hand. She has a puncture michelle the dorsum of the left hand near the 1st and 2nd digit. She also has a superficial abrasion to the anterior surface left thumb. no paresthesias restricted range of motion. No significant pain or swelling. She is not sure about her tetanus status. Her dogs are up-to-date on rabies and otherwise healthy. This was a accidental injury. no other comorbidities or any other symptoms at this time. Otherwise healthy. 1.0 cm puncture to the left dorsum of the hand between 1st and 2nd digit, superficial abrasion to the palmar surface left anterior thumb. No significant bleeding swelling or pain. No restricted range of motion. Able to oppose each digit. No crepitus palpation or any obvious bony deformity. No obvious retained foreign body. patient is afebrile, no tachycardia, tachypnea or blood pressure concerns. Otherwise healthy appearing. Does have a dog bite that requires antibiotics and a tetanus update. X-rays were obtained to rule out foreign body. Wound was cleaned and dried. Discussed with her about leaving animal bite wounds open to secondary intention healing given infection risk of trapping with sutures. Will go ahead and clean the wound and apply Steri-Strips for some better approximation and patient will be discharged home with Augmentin and anti-inflammatory medications. Discussed return precautions and patient and safe for discharge. Differential Diagnosis Differential Diagnosis: Animal bite, retained foreign body, hand infection Discharge Plan Discharge Clinical Impression: Dog bite Patient Disposition: Home Condition: Stable Instructions: Antibiotic Form, Animal Bite (ED) Additional Instructions: will require antibiotics for about 7 days to prevent hand infection from the animal bite. We have updated your tetanus here. We have given new prescriptions for antibiotics and anti-inflammatory medications. Take them as prescribed. Return with any emergent concerns such as purulent drainage from the hand, intractable increasing pain, weakness in the hand, difficulties ranging the fingers or making a fist. otherwise allow the wounds to heal on their own and follow-up with your primary care provider. Clean wounds at least once daily and then can apply bandages directly over top. Triple antibiotic ointment can also be applied to the wound. Patient Language: Malay Prescriptions: New amoxicillin-pot clavulanate 875-125 mg tablet 1 tablet PO Q12H 7 Days Qty: 14 0RF Triple Antibiotic 3.5mg-400 unit- 5,000 unit/gram ointment 1 applic topical DAILY Qty: 14 0RF acetaminophen [Tylenol Extra Strength] 500 mg tablet 1,000 mg PO TID PRN (Reason: pain) Qty: 30 0RF ibuprofen 600 mg tablet 600 mg PO TID PRN (Reason: pain) Qty: 30 0RF Follow-up/Referrals: Theresa,Nicole Jain, AUTOMOBILE CONTRACT CLERK [Primary Care Provider, Unknown] Time of Disposition: 20:52
[2025-05-23] MEDS: IBUPROFEN 600 MG TABLET PO (20:25)
[2025-05-23] MEDS: TETANUS,DIPHTHERIA,AC PERTUSSIS ADULT (0.5 ML) BOOSTRIX IM (20:26)
== END 2025-05-23 20:59 | disposition home or self-care (01) ==
PROVIDERS: Emergency Provider Student in an Organized Health Care Education/Training Program
DX: S61.452A Open bite of left hand, initial encounter (principal); W54.0XXA Bitten by dog, initial encounter; Z23 Encounter for immunization
CPT/HCPCS: 73130; 90471; 90715; 99283; A9270